=== PATIENT | female | born 1980 | race Caucasian/White ===

== ENCOUNTER 2017-08-28 11:13 | Observation (INO) | payer OTHER ==
[~2017-08-28] VITALS: Ht 170.2 cm; Wt 108.0 kg
[~2017-08-28 11:13] MED LIST: ADVIN25050 INH; ALBUAER2 INH; ALPR-411 PO; AMB10 PO; AMLO-114 PO; CLR10 PO; FLR1 PO; METO50TA16 PO; NSNN50; SERT-234 PO; savella PO
[2017-08-28 16:45] VITALS: BP 127/82; PULSE 75; TEMP 36.5; Ht 170.2 cm; Wt 108.0 kg
[2017-08-28] MEDS ORDERED: SUCR1TAB PO (17:59)
[2017-08-28] MEDS ORDERED: ONDANSETRON INJ 2 MG/ML 2 ML VIAL IV PRN (18:00)
[2017-08-28] MEDS ORDERED: DEXL60CA4 PO (18:01)
[2017-08-28] MEDS ORDERED: RANI150T3 PO (18:02)
[2017-08-28] MEDS ORDERED: POLYETHYLENE (MIRALAX) 17 GM PACK PO PRN (18:15)
[2017-08-28] MEDS ORDERED: FLUT1INH (18:20)
[2017-08-28] MEDS ORDERED: MOME220A (18:20)
[2017-08-28] MEDS ORDERED: MAGN400T6 PO (18:20)
[2017-08-28] MEDS ORDERED: DIAZ-165 PO (18:20)
[2017-08-28] MEDS ORDERED: CARB100C2 PO (18:20)
[2017-08-28] MEDS ORDERED: FRS/40 PO (18:20)
[2017-08-28] MEDS ORDERED: ASCOCRY2 (18:20)
[2017-08-28] MEDS ORDERED: PRAZ1CAP10 PO (18:20)
[2017-08-28] MEDS ORDERED: CARB1CAP3 PO (18:20)
[2017-08-28] MEDS ORDERED: ACETCAP13 (18:20)
[2017-08-28] MEDS ORDERED: OLAN1TAB64 PO (18:20)
[2017-08-28] MEDS ORDERED: TIZA4CAP PO (18:20)
[2017-08-28] MEDS ORDERED: MILN50TA PO (18:20)
[2017-08-28] MEDS ORDERED: FURO-85 PO (18:20)
[2017-08-28] MEDS ORDERED: FLUO40CA8 PO (18:20)
[2017-08-28] MEDS ORDERED: ALBINS/ INH (18:20)
[2017-08-28] MEDS: LACTATED RINGER'S 1000ML 1,000 ML IV SCH (18:38)
[2017-08-28] MEDS: HYDROmorphone INJ 0.5 MG/0.5 ML SYR IV PRN (18:38)
--- NOTE | 2017-08-28 18:38 | DIAGNOSTIC IMAGING REPORT ---
CHEST ONE VIEW PORTABLE HISTORY: 37 years-old Female copd acute shortness of breath COMPARISON: None available TECHNIQUE: Portable AP view of the chest FINDINGS: Cardiac silhouette is mildly enlarged. Mild pulmonary vascular congestion without overt edema. Left pectoral pacer is noted with leads overlying the right atrium and right ventricle. No pneumothorax, pleural effusion or focal airspace consolidation. Bones of the chest are grossly intact. IMPRESSION: Cardiomegaly with mild pulmonary vascular congestion The above report was generated using voice recognition software. It may contain grammatical, syntax or spelling errors. Electronically signed by: Magdi Moreira M.D. 08/28/2017 6:36 PM Dictated Date/Time: 08/28/2017 6:35 PM
[2017-08-28] MEDS ORDERED: IV FLUIDS COMPLETED PRN (19:00)
[2017-08-28 19:47] LABS: BUN/CREATININE RATIO 20.3 (10-20); CALCIUM 8.3 mg/dl (8.5-10.1); CREATININE 0.62 mg/dl (0.60-1.20); POTASSIUM 3.4 mmol/L (3.5-5.1)
[2017-08-28 19:48] LABS: BASO % 0.1 %; BASO ABS # 0.01 K/uL (0-0.2); COMPLETE YES; EOS % 1.2 %; HEMATOCRIT 36.4 % (37-47); IG% 0.6 %; LYMPH % 17.3 %; LYMPH ABS # 1.42 K/uL (1.2-3.4); MEAN CELL VOLUME 92.2 fL (80-100); MEAN CORPUSCULAR HEMOGLOBIN 29.9 pg (25-34); MEAN CORPUSCULAR HGB CONC 32.4 g/dl (32-36); MEAN PLATELET VOLUME 9.7 fL (7.4-10.4); MONO % 11.3 %; NEUT % 69.5 %; PLATELET COUNT 238 K/uL (130-400); RED BLOOD COUNT 3.95 M/uL (4.2-5.4); WHITE BLOOD COUNT 8.22 K/uL (4.8-10.8)
[2017-08-28 20:02] LABS: ALB/GLOB RATIO 0.9 (0.9-2)
--- NOTE | 2017-08-28 20:03 | History and Physical ---
History & Physical Date & Time of Service: Aug 28, 2017 at 19:49 Chief Complaint: Flank Pain Primary Care Physician: Matt Aponte M.D. History of Present Illness Source: patient, clinic records This is a 37yo F with a PMH of POTS (s/p pacemaker), COPD, fibromyalgia, bipolar disorder, vasospastic angina and anxiety who presents with R flank/back pain that started at 3am today. Describes pain as 10/10 stabbing R back pain with radiation to the flank. Associated with nausea but no vomiting or diarrhea. Patient took hydrocodone but it did not relieve pain so she presented to [facility]. Was found to have a leukocytosis of 12.6, an elevated lipase of 646 and transaminitis. Patient had a cholecystectomy in 2010. CT abd pelvis was without an acute inflammatory process. No nephrolithiasis, hydronephrosis, ureteral stone. Normal appendix. RUQ ultrasound showed a CBD of 0.5cm; no stone obstruction. GI was consulted at [facility] but patient unable to have an MRCP due to presence of pacemaker. Was transferred to [facility] for pain control and ERCP. Patient denies recent alcohol use. Denies prior history of pancreatitis. Does take Lasix daily for HTN. Denies h/o CHF. Past Medical/Surgical History Medical Problems: (1) Anxiety Status: Chronic (2) Bipolar disorder Status: Chronic (3) COPD (chronic obstructive pulmonary disease) Status: Chronic (4) Fibromyalgia Status: Chronic (5) GERD (gastroesophageal reflux disease) Status: Chronic (6) POTS (postural orthostatic tachycardia syndrome) Status: Chronic (7) Vasospastic angina Status: Chronic Surgical Problems: (1) S/P placement of cardiac pacemaker Status: Chronic Social History Smoking Status: Former Smoker (quit a year ago) Alcohol Use: occasionally (1x/month) Marital Status: Housing status: lives with family Immunizations History of Influenza Vaccine: N/A History of Tetanus Vaccine?: Yes History of Pneumococcal: Yes History of Hepatitis B Vaccine: Unknown Allergies Coded Allergies: CI Pigment Blue 63 (Verified Allergy, Unknown, "HALLUCINATIONS", 01/17/12) Duloxetine (Verified Allergy, Unknown, "HALLUCINATIONS", 01/17/12) Pregabalin (Verified Allergy, Unknown, TONGUE SWELLING, 01/17/12) Home Medications Scheduled Albuterol (Ventolin Hfa), 2 PUFFS INH Q4HR PRN Albuterol Sulf (Proventil 0.083% 2.5MG/3ML), 2.5 MG INH QID Amlodipine (Norvasc), 2.5 MG PO QAM Carbamazepine (Tegretol Xr), 200 MG PO BID Metoprolol Tartrate (Lopressor) (Lopressor), 50 MG PO BID Milnacipran Hcl (Savella), 1 TAB PO BID Olanzapine (Zyprexa), 15 MG PO DAILY Prazosin Hcl (Prazosin), 1 MG PO BID Ranitidine Hcl (Zantac), 150 MG PO BID Sucralfate (Sucralfate), 1 GM PO before meals Tizanidine (Zanaflex), 4 MG PO DAILY Scheduled PRN Dexlansoprazole (Dexilant), 60 MG PO Q am PRN for reflux Diazepam (Valium), 1 TAB PO TID PRN for Anxiety/Agitation Miscellaneous Medications Acetylcysteine (Nutrient) (Nac 600) Ascorbic Acid (Lina-C) Carbamazepine (Tegretol), 100 MG PO Fluoxetine (Prozac), 40 MG PO Fluticasone Furoate-Vilanterol (Breo Ellipta) Furosemide (Lasix), 40 MG PO Furosemide (Lasix), 20 MG PO Magnesium Oxide (Mag-Ox), 400 MG PO Mometasone Furoate (Inhalation (Asmanex Twisthaler 120 Me) Review of Systems Ten systems reviewed and negative except as noted in the HPI. Physical Exam Vital Signs Date Time Temp Pulse Resp B/P (MAP) Pulse Ox O2 Delivery O2 Flow Rate FiO2 08/28/17 16:45 36.5 75 16 127/82 Room Air General Appearance: + moderate distress, + obese Head: normocephalic, atraumatic Eyes: normal inspection, PERRL, sclerae normal ENT: normal ENT inspection, hearing grossly normal, pharynx normal (dry mucous membranes ) Neck: supple, thyroid normal, trachea midline Respiratory/Chest: chest non-tender, lungs clear, normal breath sounds, no respiratory distress, no accessory muscle use, + wheezing (Diffuse bilateral expiratory wheezing. Otherwise clear. ) Cardiovascular: regular rate, rhythm, no murmur, normal peripheral pulses Abdomen/GI: normal bowel sounds, non tender, soft, no organomegaly Back: + pertinent finding (TTP of R lower back to flank ) Extremities/Musculoskelatal: normal inspection, normal capillary refill, no pedal edema Neurologic/Psych: no motor/sensory deficits, alert, normal mood/affect, oriented x 3 Skin: normal color, + pertinent finding (Diffuse excoriations 2/2 skin picking ) Diagnostics Laboratory Results Results Past 24 Hours Test 08/28/17 19:11 Range/Units White Blood Count 8.22 4.8-10.8 K/uL Red Blood Count 3.95 4.2-5.4 M/uL Hemoglobin 11.8 12.0-16.0 g/dL Hematocrit 36.4 37-47 % Mean Corpuscular Volume 92.2 80-100 fL Mean Corpuscular Hemoglobin 29.9 25-34 pg Mean Corpuscular Hemoglobin Concent 32.4 32-36 g/dl Platelet Count 238 130-400 K/uL Mean Platelet Volume 9.7 7.4-10.4 fL Neutrophils (%) (Auto) 69.5 % Lymphocytes (%) (Auto) 17.3 % Monocytes (%) (Auto) 11.3 % Eosinophils (%) (Auto) 1.2 % Basophils (%) (Auto) 0.1 % Neutrophils # (Auto) 5.71 1.4-6.5 K/uL Lymphocytes # (Auto) 1.42 1.2-3.4 K/uL Monocytes # (Auto) 0.93 0.11-0.59 K/uL Eosinophils # (Auto) 0.10 0-0.5 K/uL Basophils # (Auto) 0.01 0-0.2 K/uL RDW Standard Deviation 44.7 36.4-46.3 fL RDW Coefficient of Variation 13.3 11.5-14.5 % Immature Granulocyte % (Auto) 0.6 % Immature Granulocyte # (Auto) 0.05 0.00-0.02 K/uL Sodium Level 135 136-145 mmol/L Potassium Level 3.4 3.5-5.1 mmol/L Chloride Level 102 98-107 mmol/L Carbon Dioxide Level 28 21-32 mmol/L Anion Gap 6.0 3-11 mmol/L Blood Urea Nitrogen 13 7-18 mg/dl Creatinine 0.62 0.60-1.20 mg/dl Est Creatinine Clear Calc Drug Dose 158.8 ml/min Estimated GFR () 134.5 Estimated GFR (Non- 116.0 BUN/Creatinine Ratio 20.3 10-20 Random Glucose 104 70-99 mg/dl Calcium Level 8.3 8.5-10.1 mg/dl Alanine Aminotransferase (ALT/SGPT) 324 12-78 U/L Albumin 3.3 3.4-5.0 gm/dl Lipase 114 73-393 U/L Diagnostic Radiology CXR: IMPRESSION: Cardiomegaly with mild pulmonary vascular congestion EKG Normal sinus rhythm Normal ECG When compared Normal EKG Impression Assessment and Plan This is a 37yo F with a PMH of POTS (s/p pacemaker), COPD, fibromyalgia, bipolar disorder, vasospastic angina and anxiety who presents with R flank/back pain that started at 3am today. Mild pancreatitis: -R flank, back pain -Lipase elevated to 646 at [facility] -AST of 221, ALT of 120 -Repeat labwork pending -CT abd pelvis unremarkable (imaging CD sent to radiology) -RUQ without evidence of CBD stone obstruction -Fluid resuscitation, pain control, clear liquid diet -NPO after midnight in case of ERCP tomorrow -GI consulted POTS: -S/p pacemaker -Stable -Continue metoprolol COPD: -Stable -Cont home inhalers Fibromyalgia: -Cont home dose zanaflex, flexeril, savella Vasospastic angina, HTN: -Stable -Hold lasix -Cont home amlodipine, prazosin, ntg prn Bipolar disorder: -Cont olanszapine, carbamazepine GERD, h/o gastritis: -Cont sucralfate, PPI, H2 carlos Anxiety: -Cont home dose prozac, valium DVT Ppx: SCDs Code status: FULL PCP: Doris Dispo: Observation medsurg. Plan to return home once medically stable Patient seen in collaboration with Dr. Valdovinos. Please see addendum. ADDENDUM: This is a 37 year old female with a PMH of POTS syndrome s/p pacemaker, fibromyalgia, depression/anxiety, PTSD, COPD, GERD, hx. of Iris Alonso tear presented to [facility] due to abdominal pain. Lab work showed elevated LFTs and lipase suggesting pancreatitis. CT of the abdomen was done, no acute findings. MRCP could not be performed due to her pacemaker in situ. She was sent here for possible ERCP. Plan: Acute Pancreatitis Lipase elevated at [facility] >600 Lipase is now down to wnl transaminitis noted possible common bile duct blockage? MRCP could not be performed secondary to pacemaker GI consulted for possible ERCP LR, NPO, pain control Will hold Lasix, but continue other medications for her vasospastic angina, fibromyalgia, depression/anxiety, etc. Level of Care Med/Surg Advanced Directives Existing Living Will: No Existing Power of Security Operations Engineer: No Resuscitation Status FULL RESUSCITATION VTE Prophylaxis VTE Risk Assessment Done? Y/N: Yes Risk Level: Low Given or contraindicated: SCD's
[2017-08-28] MEDS ORDERED: DIAZ5TAB3 PO (20:15)
[2017-08-28] MEDS ORDERED: PANTOprazole SOD 40 MG TAB PO PRN (20:30)
[2017-08-28] MEDS ORDERED: DIAZEPAM 5MG TAB PO PRN (20:30)
[2017-08-28] MEDS ORDERED: POTASSIUM CHLORIDE 20 MEQ TABCR PO STA (20:52)
[2017-08-28] MEDS: MOMETASONE FUROATE 14 PUFF/1 INHALER INH SCH (21:12)
[2017-08-28] MEDS: KETOROLAC TROMETHAMINE 30 MG/ML VIAL IV PRN (22:28)
[2017-08-29] VITALS: O2SAT 96
[2017-08-29] MEDS ORDERED: ALBUTEROL HFA 8 GM INHALER INH PRN
[2017-08-29 00:22] VITALS: BP 129/79; PULSE 88; TEMP 37; O2SAT 96
[2017-08-29] MEDS: LACTATED RINGER'S 1000ML 1,000 ML IV SCH ×4 (00:38→22:11)
[2017-08-29] MEDS: HYDROmorphone INJ 0.5 MG/0.5 ML SYR IV PRN ×3 (00:39→23:25)
[2017-08-29] MEDS: KETOROLAC TROMETHAMINE 30 MG/ML VIAL IV PRN ×3 (05:09→20:06)
[2017-08-29 06:47] LABS: HEMATOCRIT 34.3 % (37-47); MEAN CELL VOLUME 93.2 fL (80-100); MEAN CORPUSCULAR HEMOGLOBIN 29.6 pg (25-34); MEAN CORPUSCULAR HGB CONC 31.8 g/dl (32-36); PLATELET COUNT 217 K/uL (130-400); RED BLOOD COUNT 3.68 M/uL (4.2-5.4); WHITE BLOOD COUNT 6.83 K/uL (4.8-10.8)
[2017-08-29 07:13] LABS: BUN/CREATININE RATIO 19.1 (10-20); CALCIUM 8.1 mg/dl (8.5-10.1); CREATININE 0.57 mg/dl (0.60-1.20); MAGNESIUM 2.3 mg/dl (1.8-2.4); POTASSIUM 3.8 mmol/L (3.5-5.1)
[2017-08-29 07:17] VITALS: BP 144/89; PULSE 77; TEMP 36.7; O2SAT 94
[2017-08-29 07:33] LABS: ALB/GLOB RATIO 0.9 (0.9-2)
[2017-08-29 08:00] VITALS: O2SAT 94
[2017-08-29] MEDS ORDERED: CARBAMAZEPINE 200 MG TABCR PO SCH (08:00)
[2017-08-29] MEDS ORDERED: CARBAMAZEPINE 100 MG CHEW TAB PO SCH (08:00)
[2017-08-29] MEDS ORDERED: FLUOXETINE HCL 20 MG CAP PO SCH ×2 (08:00→21:00)
[2017-08-29] MEDS: MAGNESIUM OXIDE 400 MG TAB PO SCH (08:14)
[2017-08-29] MEDS: SUCRALFATE 1 GM TAB PO SCH ×4 (08:14→20:03)
[2017-08-29] MEDS: OLANZAPINE 5 MG TAB PO SCH (08:14)
[2017-08-29] MEDS: RANITIDINE HCL 150 MG TAB PO SCH ×2 (08:15→20:03)
[2017-08-29] MEDS: PRAZOSIN HCL 1 MG CAP PO SCH ×2 (08:15→20:03)
[2017-08-29] MEDS: METOPROLOL TARTRATE 50 MG TAB PO SCH ×2 (08:16→20:03)
[2017-08-29] MEDS: AMLODIPINE BESYLATE 5 MG TAB PO SCH (08:27)
--- NOTE | 2017-08-29 10:46 | Gastrointestinal Consultation ---
Gastrointestinal Consultation Date of Consultation: Aug 29, 2017 Attending Physician: Tonny Consulting Physician: Tim Reason for Consultation: mild pancreatitis History of Present Illness Patient is a 37 year old female w/ history of POTS, cholecystectomy for gallstones and others listed below who presented at [facility] as a transfer from [facility]. Pt was seen and evaluated, chart reviewed. Pt notes she has had intermittent right sided discomfort with mild nausea, no vomiting x 1 month. She recalls going to [place] [facility] 08/21/17 for similar symptoms. She notes at this time, imaging and labs were WNL and she was discharged to home. Her symptoms persisted intermittently w/ abd pain, nausea, rain colored stools and dark urine. Last evening had acute worsening in her symptoms, 06/25. Right sided flank pain w/ radiation to her RUQ pain. Sharp, stabbing. Associated with nausea, no vomiting. Not relieved with PO narcotics. She notes she continue to have light stools are dark urine. Has been taking 1000 mg tylenol 3-4 times daily intermittent for pain. No NSAIDs due to history of GERD. Per pt CT w/ evidence of pancreatis, RUQ US normal. No new medications. No history of pancreatitis. Is on Lasix. No ETOH use. Cant get MRCP due to pacer. She is afebrile, hypertensive, tachycardic. WBC WNL. TB 2, DB 1.5, AST 317, ALT 286, ALK 277. Lipase 142. EGD 04/30/17: gastritis, esophagitis samina RUQ US 08/28/17: CT ABD Pelvis 08/28/17: Past Medical/Surgical History abd pain, nausea, rain colored stools, dark urine, chills Past Medical History: COPD, vit d deficienct, IBS, GERD, Iris-Alonso tear, PTSD, depression, POTS Past Surgical History: pacemaker, cholecystectomy, hysterectomy, cystoscopy, EGD Social History Smoking Status: Former Smoker (quit a year ago) Alcohol Use: none Marital Status: Allergies Coded Allergies: CI Pigment Blue 63 (Verified Allergy, Unknown, "HALLUCINATIONS", 01/17/12) Duloxetine (Verified Allergy, Unknown, "HALLUCINATIONS", 01/17/12) Pregabalin (Verified Allergy, Unknown, TONGUE SWELLING, 01/17/12) Current Medications Home Meds and Scripts Medications Dose Route/Sig Max Daily Dose Days Date Category Dose Instructions Valium (Diazepam) 5 Mg Tab 1 Tab PO TID PRN 30 08/28/17 Reported Lina-C (Ascorbic Acid) 1 Cry Cry 08/28/17 Reported Nac 600 (Acetylcysteine (Nutrient)) 600 Mg Cap 08/28/17 Reported Mag-Ox (Magnesium Oxide) 400 Mg Tab 400 Mg PO 08/28/17 Reported Proventil 0.083% 2.5MG/3ML (Albuterol Sulf) 2.5 Mg/3 Ml Nebu 2.5 Mg INH QID 08/28/17 Reported Asmanex Twisthaler 120 Me (Mometasone Furoate (Inhalation) 220 Mcg/Inh Aer 08/28/17 Reported Breo Ellipta (Fluticasone Furoate-Vilanterol) 1 Inh Inh 08/28/17 Reported Lasix (Furosemide) 20 Mg Tab 20 Mg PO 08/28/17 Reported Take with 40mg lasix for a total of 60mg lasix total. Lasix (Furosemide) 40 Mg Tab 40 Mg PO 08/28/17 Reported Take with 20mg lasix for a total of 60mg lasix total. Prazosin (Prazosin HCl) 1 Mg Cap 1 Mg PO BID 08/28/17 Reported Tegretol (Carbamazepine) 100 Mg Chew 100 Mg PO 08/28/17 Reported Tegretol Xr (Carbamazepine) 200 Mg Cap 200 Mg PO BID 08/28/17 Reported Prozac (Fluoxetine HCl) 40 Mg Cap 40 Mg PO 08/28/17 Reported Zyprexa (Olanzapine) 15 Mg Tab 15 Mg PO DAILY 08/28/17 Reported Zanaflex (Tizanidine HCl) 4 Mg Cap 4 Mg PO DAILY 08/28/17 Reported Savella (Milnacipran Hcl) 50 Mg Tab 1 Tab PO BID 30 08/28/17 Reported Zantac (Ranitidine HCl) 150 Mg Tab 150 Mg PO BID 08/28/17 Reported Dexilant (Dexlansoprazole) 60 Mg Cap 60 Mg PO Q AM PRN 08/28/17 Reported Sucralfate 1 Gm Tab 1 Gm PO BEFORE MEALS 08/28/17 Reported Norvasc (Amlodipine Besylate) 10 Mg Tab 2.5 Mg PO QAM 01/18/12 Rx Ventolin Hfa (Albuterol) Aers 2 Puffs INH Q4HR PRN 07/10/11 Reported for wheezing Lopressor (Metoprolol Tartrate) 50 Mg Tab 50 Mg PO BID 07/10/11 Reported Review of Systems Constitutional: + chills, No fever Respiratory: No cough, No shortness of breath Cardiac: No chest pain, No edema Abdomen: + pain, + nausea, No vomiting, No diarrhea, No constipation, No GI bleeding, No dysphagia Physical Exam Date Time Temp Pulse Resp B/P (MAP) Pulse Ox O2 Delivery O2 Flow Rate FiO2 08/29/17 07:17 36.7 77 20 144/89 (107) 94 Room Air 08/29/17 00:22 37.0 88 20 129/79 (96) 96 Room Air 08/29/17 00:00 96 Room Air 08/28/17 18:00 Room Air 08/28/17 16:45 36.5 75 16 127/82 Room Air General Appearance: + mild distress (pt is holding RUQ in bed) Eyes: PERRL ENT: hearing grossly normal Neck: supple Respiratory/Chest: lungs clear, normal breath sounds Cardiovascular: regular rate, rhythm Abdomen: normal bowel sounds, soft, no organomegaly, no pulsatile mass, + tenderness (RUQ pain w/ radiation to right flank ) Neurologic/Psych: alert, normal mood/affect, oriented x 3 Skin: normal color, no jaundice, warm/dry Laboratory Results Last 24 Hours Test 08/28/17 19:11 08/29/17 03:29 08/29/17 05:49 08/29/17 09:34 White Blood Count 8.22 K/uL 6.83 K/uL Red Blood Count 3.95 M/uL 3.68 M/uL Hemoglobin 11.8 g/dL 10.9 g/dL Hematocrit 36.4 % 34.3 % Mean Corpuscular Volume 92.2 fL 93.2 fL Mean Corpuscular Hemoglobin 29.9 pg 29.6 pg Mean Corpuscular Hemoglobin Concent 32.4 g/dl 31.8 g/dl Platelet Count 238 K/uL 217 K/uL Mean Platelet Volume 9.7 fL 10.0 fL Neutrophils (%) (Auto) 69.5 % Lymphocytes (%) (Auto) 17.3 % Monocytes (%) (Auto) 11.3 % Eosinophils (%) (Auto) 1.2 % Basophils (%) (Auto) 0.1 % Neutrophils # (Auto) 5.71 K/uL Lymphocytes # (Auto) 1.42 K/uL Monocytes # (Auto) 0.93 K/uL Eosinophils # (Auto) 0.10 K/uL Basophils # (Auto) 0.01 K/uL RDW Standard Deviation 44.7 fL 45.7 fL RDW Coefficient of Variation 13.3 % 13.4 % Immature Granulocyte % (Auto) 0.6 % Immature Granulocyte # (Auto) 0.05 K/uL Prothrombin Time 10.0 SECONDS Prothromb Time International Ratio 1.0 Activated Partial Thromboplast Time 25.7 SECONDS Partial Thromboplastin Ratio 1.0 Sodium Level 135 mmol/L 136 mmol/L Potassium Level 3.4 mmol/L 3.8 mmol/L Chloride Level 102 mmol/L 103 mmol/L Carbon Dioxide Level 28 mmol/L 28 mmol/L Anion Gap 6.0 mmol/L 4.0 mmol/L Blood Urea Nitrogen 13 mg/dl 11 mg/dl Creatinine 0.62 mg/dl 0.57 mg/dl Est Creatinine Clear Calc Drug Dose 158.8 ml/min 172.7 ml/min Estimated GFR () 134.5 138.2 Estimated GFR (Non- 116.0 119.3 BUN/Creatinine Ratio 20.3 19.1 Random Glucose 104 mg/dl 108 mg/dl Calcium Level 8.3 mg/dl 8.1 mg/dl Total Bilirubin 1.2 mg/dl 2.0 mg/dl Aspartate Amino Transf (AST/SGOT) 411 U/L 317 U/L Alanine Aminotransferase (ALT/SGPT) 324 U/L 286 U/L Alkaline Phosphatase 286 U/L 277 U/L Total Protein 7.0 gm/dl 6.0 gm/dl Albumin 3.3 gm/dl 2.8 gm/dl Globulin 3.7 gm/dl 3.2 gm/dl Albumin/Globulin Ratio 0.9 0.9 Lipase 114 U/L 142 U/L Acetaminophen Level < 2 ug/ml Magnesium Level 2.3 mg/dl Direct Bilirubin 1.5 mg/dl Ethyl Alcohol mg/dL < 3.0 mg/dl Impression Patient is a 37 year old female admitted with severe RUQ pain, I was unable to review imaging yet, per report CT suggestive of mild pancreatitis, RUQ US without evidence of obstructive. Lipase WNL. TB 2, TB 1.5, AST 317, ALT 216, ALK 277. Will obtain serology, rule out Tylenol toxicity and other causes of cholestasis w/ plan for EUS/ERCP Plan Tylenol level ETOH level CMV EBV Acute hep panel Daily CBC, CMP Review imaging when available NPO IVF for hydration Antiemetics PRN Analgesia PRN EUS/ERCP, timing to be determined GI will follow, please call with any questions or concerns I have seen and examined the patient with OLIMPIA Bullard whose note reflects our findings and plan. RUQ and back pain as well as about a week of epigastric pain. Will repeat US here as the bilirubin increased. May need EUS/ +/- ERCP tomorrow.
--- NOTE | 2017-08-29 11:21 | Progress Note ---
Progress Note Date of Service Aug 29, 2017. Progress Note Subjective: Patient seen and examined this AM, drowsy at the bedside due to pain medications , patient cooperative on exam Physical Exam General Appearance: no acute distress Head: normocephalic, atraumatic Eyes: normal inspectionl Neck: supple, trachea midline Respiratory/Chest: chest non-tender, lungs clear, normal breath sounds, no respiratory distress, no accessory muscle use Cardiovascular: regular rate, rhythm, no murmur Abdomen/GI: normal bowel sounds, non tender, soft, no organomegaly Back: TTP of R lower back to flank Extremities/Musculoskelatal: normal inspection Plan This is a 37yo F with a PMH of POTS (s/p pacemaker), COPD, fibromyalgia, bipolar disorder, vasospastic angina and anxiety, had a cholecystectomy in 2010 , who presents with Right flank/back pain with labs for leukocytosis of 12.6, an elevated lipase of 646 and transaminitis Outside imaging from [facility] sent to radiology -CT abd pelvis unremarkable (imaging CD sent to radiology) -RUQ without evidence of CBD stone obstruction As per GI possible EUS/ERCP, keep NPO except medications, continue IVF for hydration / Antiemetics PRN / Analgesia PRN (monitor for sedation) Acetaminophen level negative Ethyl alcohol level negative pending CMV and EBV Hep C negative Hep B antigen neg pending Hep B and Hep A IgM Postural orthostatic tachycardia syndrome -has pacemaker -Continue metoprolol COPD: [place] [facility] CXR: Cardiac silhouette is mildly enlarged. Mild pulmonary vascular congestion without overt edema. Left pectoral pacer is noted with leads overlying the right atrium and right ventricle. No pneumothorax, pleural effusion or focal airspace consolidation. Bones of the chest are grossly intact -Stable -Cont home inhalers Fibromyalgia: -Cont home dose zanaflex, flexeril, savella Vasospastic angina, HTN: -Stable -Hold lasix -Cont home amlodipine, prazosin, ntg prn Bipolar disorder: -Cont olanszapine, carbamazepine GERD, h/o gastritis: -Cont sucralfate, PPI, H2 carlos Anxiety: - prozac, valium DVT Ppx: SCDs
[2017-08-29] MEDS ORDERED: INDOMETHACIN 50 MG SUPP PR SCH (11:30)
[2017-08-29] MEDS ORDERED: NURSING VERBAL MED ORDER ONE (13:30)
--- NOTE | 2017-08-29 13:52 | DIAGNOSTIC IMAGING REPORT ---
GALLBLADDER-ABD LIMITED HISTORY: 37 years-old Female elevated LFTs, RUQ pain acute right upper quadrant abdominal pain COMPARISON: CT 08/28/2017 TECHNIQUE: Multiple real-time sonographic images of the abdominal right upper quadrant were obtained assessing grayscale appearance and color flow FINDINGS: The imaged pancreas is unremarkable with the majority obscured by bowel gas. Mildly heterogeneous appearance of the liver is slightly echogenic suggesting fatty infiltration. No intrahepatic biliary ductal dilation. Liver measures up to 18.2 cm. Common bile duct is normal, 4 mm. Surgically absent gallbladder. Probable small right pleural effusion incidentally noted. The imaged right kidney is within normal limits measuring up to 10.8 cm in length. No right-sided hydronephrosis. IMPRESSION: 1. Prior cholecystectomy. 2. No biliary ductal dilation. 3. Mild fatty infiltration of the liver. The above report was generated using voice recognition software. It may contain grammatical, syntax or spelling errors. Electronically signed by: Magdi Moreira M.D. 08/29/2017 1:50 PM Dictated Date/Time: 08/29/2017 1:46 PM
[2017-08-29 15:32] VITALS: BP 126/78; PULSE 86; TEMP 37.5; O2SAT 98
[2017-08-29 20:04] VITALS: BP 156/85; PULSE 98
[2017-08-29] MEDS: MOMETASONE FUROATE 14 PUFF/1 INHALER INH SCH (20:53)
--- NOTE | 2017-08-29 21:23 | Anesthesiology Progress Note ---
Anesthesia Progress Note Date of Service Aug 29, 2017. Progress Notes The patient is a 37 y/o female scheduled for an ERCP tomorrow. She has R flank pain and a history of cholecystectomy. Other PMH includes COPD, vasospastic angina, HTN, vasovagal syncope, pacemaker placed due to POTS, GERD, fibromyalgia , hypothyroidism, anemia, anxiety, bipolar disorder, and obesity. The patient is an ASA 3. A full anesthesia H and P was completed. She was consented for general anesthesia. She was counseled to remain NPO after midnight except for sips of water with pills.
[2017-08-30] VITALS (7 sets, daily range): BP systolic 108–138; BP diastolic 66–88; PULSE 62–96; TEMP 36.6–37.3; O2SAT 92–98
[2017-08-30] MEDS: LACTATED RINGER'S 1000ML 1,000 ML IV SCH (05:37)
[2017-08-30] MEDS: HYDROmorphone INJ 0.5 MG/0.5 ML SYR IV PRN ×4 (05:38→17:58)
[2017-08-30 07:05] LABS: BASO % 0.3 %; BASO ABS # 0.02 K/uL (0-0.2); COMPLETE YES; HEMATOCRIT 31.8 % (37-47); IG% 0.6 %; LYMPH % 29.6 %; LYMPH ABS # 1.89 K/uL (1.2-3.4); MEAN CELL VOLUME 94.1 fL (80-100); MEAN CORPUSCULAR HEMOGLOBIN 29.6 pg (25-34); MEAN CORPUSCULAR HGB CONC 31.4 g/dl (32-36); MEAN PLATELET VOLUME 9.9 fL (7.4-10.4); MONO % 10.3 %; NEUT % 57.2 %; PLATELET COUNT 197 K/uL (130-400); RED BLOOD COUNT 3.38 M/uL (4.2-5.4); WHITE BLOOD COUNT 6.38 K/uL (4.8-10.8)
[2017-08-30 07:40] LABS: BUN/CREATININE RATIO 14.3 (10-20); CALCIUM 8.1 mg/dl (8.5-10.1); CREATININE 0.52 mg/dl (0.60-1.20); POTASSIUM 4.1 mmol/L (3.5-5.1)
[2017-08-30 07:50] LABS: ALB/GLOB RATIO 0.9 (0.9-2)
[2017-08-30] MEDS: AMLODIPINE BESYLATE 5 MG TAB PO SCH (08:01)
[2017-08-30] MEDS: PRAZOSIN HCL 1 MG CAP PO SCH (08:01)
[2017-08-30] MEDS: OLANZAPINE 5 MG TAB PO SCH (08:01)
[2017-08-30] MEDS: MAGNESIUM OXIDE 400 MG TAB PO SCH (08:01)
[2017-08-30] MEDS: RANITIDINE HCL 150 MG TAB PO SCH (08:01)
[2017-08-30] MEDS: METOPROLOL TARTRATE 50 MG TAB PO SCH (08:02)
[2017-08-30] MEDS: SUCRALFATE 1 GM TAB PO SCH ×3 (08:02→16:53)
--- NOTE | 2017-08-30 10:29 | Progress Note ---
Progress Note Date of Service Aug 30, 2017. Progress Note Pt was seen and evaluated, chart reviewed. No acute events overnight. Is NPO for EUS/ERCP today. She notes continued RUQ and right flank pain w/ nausea. Labs improved overnight w/ normal bilirubin and improving transaminases. Tylenol level WNL. ETOH level WNL. Acute hep panel pending, but negative to date. VSS. No leukocytosis. No acute distress, lungs CTA, heart RR, abdomen soft , non-distending w/ RUQ discomfort. 37 year old female w/ right sided abdominal and flank pain w/ elevated LFTs (now resolving) w/ normal RUQ US. Presentation was concerning for CBD stone, with improvement of LFTs, perhaps she passed the stone. Given persistence of her discomfort, I would recommend we keep the PT NPO with plan for EUS - if EUS is abnormal, will arrange ERCP.
[2017-08-30] MEDS ORDERED: INDOMETHACIN 50 MG SUPP PR SCH (11:30)
[2017-08-30] MEDS ORDERED: PROPOFOL IV EMULSION 10 MG/ML 20 ML VIAL IV ONE ×2 (12:43→14:28)
[2017-08-30] MEDS ORDERED: MIDAZOLAM HCL 1 MG/ML 2ML VIAL ONE (12:44)
[2017-08-30] MEDS ORDERED: FENTANYL CITRATE INJ 50 MCG/1 ML 2 ML VIAL ONE ×2 (12:44→14:36)
[2017-08-30] MEDS ORDERED: DEXAMETHASONE SOD INJ 4 MG/ML VIAL ONE (12:45)
[2017-08-30] MEDS ORDERED: ONDANSETRON INJ 2 MG/ML 2 ML VIAL ONE (12:45)
--- NOTE | 2017-08-30 13:29 | Progress Note ---
Progress Note Date of Service Aug 30, 2017. Progress Note Subjective: Patient reports less abdomen dn flank pain today. No chest pain or shortness of breath Physical Exam General Appearance: no acute distress Head: normocephalic, atraumatic Eyes: normal inspection Neck: supple, trachea midline Respiratory/Chest: chest non-tender, lungs clear, normal breath sounds, no respiratory distress, no accessory muscle use Cardiovascular: regular rate, rhythm, no murmur Abdomen/GI: normal bowel sounds, non tender, soft, no organomegaly Back: TTP of R lower back to flank Extremities/Musculoskelatal: normal inspection Plan This is a 37yo F with a PMH of POTS (s/p pacemaker), COPD, fibromyalgia, bipolar disorder, vasospastic angina and anxiety, had a cholecystectomy in 2010 , who presents with Right flank/back pain with labs for leukocytosis of 12.6, an elevated lipase of 646 and transaminitis Outside imaging from [facility] sent to radiology -CT abd pelvis unremarkable (imaging CD sent to radiology) -RUQ without evidence of CBD stone obstruction As per GI possible EUS vs ERCP, keep NPO except medications, continue IVF for hydration / Antiemetics PRN / Analgesia PRN (monitor for sedation) Acetaminophen level negative Ethyl alcohol level negative pending CMV and EBV Hep C negative Hep B antigen neg pending Hep B and Hep A IgM AST/ ALT are downtrending Postural orthostatic tachycardia syndrome -has pacemaker -Continue metoprolol COPD: [facility] Imaging CXR: Cardiac silhouette is mildly enlarged. Mild pulmonary vascular congestion without overt edema. Left pectoral pacer is noted with leads overlying the right atrium and right ventricle. No pneumothorax, pleural effusion or focal airspace consolidation. Bones of the chest are grossly intact -Stable -Cont home inhalers Fibromyalgia: -Cont home dose zanaflex, flexeril, savella Vasospastic angina, HTN: -Stable -Hold lasix -Cont home amlodipine, prazosin, ntg prn Bipolar disorder: -Cont olanszapine, carbamazepine GERD, h/o gastritis: -Cont sucralfate, PPI, H2 carlos Anxiety: - prozac, valium DVT Ppx: SCDs
--- NOTE | 2017-08-30 14:04 | Endo History and Physical ---
History & Physical Date of Service: Aug 30, 2017. Chief Complaint: Abdominal pain Referring Physician: Dr. Dumont History of Present Illness Patient referred for EUS and possible ERCP after presenting with RUQ pain and elevated liver tests. [facility] EGD 3 to 4 months ago in [place] by Dr. Urban. Past Surgical History Hx Cardiac Surgery: Yes (pacemaker) Hx Abdominal Surgery: Yes (gallbladder remover (2010)) Hx Post-Op Nausea and Vomiting: No Hx Cancer Surgery: No Hx Thoracic Surgery: No Hx Orthopedic: No Hx Urinary Tract Surgery: No Social History Smoking Status: Former Smoker (quit a year ago) Hx Substance Use: Yes (marijauna oil (for fibromyalgia and anxiety) Adderall ) Hx Alcohol Use: Yes (occasionally) Allergies Coded Allergies: CI Pigment Blue 63 (Verified Allergy, Unknown, "HALLUCINATIONS", 01/17/12) Duloxetine (Verified Allergy, Unknown, "HALLUCINATIONS", 01/17/12) Pregabalin (Verified Allergy, Unknown, TONGUE SWELLING, 01/17/12) Current Medications Reported Home Medications Medications Dose Route/Sig Max Daily Dose Days Date Category Dose Instructions Valium (Diazepam) 5 Mg Tab 1 Tab PO TID PRN 30 08/28/17 Reported Lina-C (Ascorbic Acid) 1 Cry Cry 08/28/17 Reported Nac 600 (Acetylcysteine (Nutrient)) 600 Mg Cap 08/28/17 Reported Mag-Ox (Magnesium Oxide) 400 Mg Tab 400 Mg PO 08/28/17 Reported Proventil 0.083% 2.5MG/3ML (Albuterol Sulf) 2.5 Mg/3 Ml Nebu 2.5 Mg INH QID 08/28/17 Reported Asmanex Twisthaler 120 Me (Mometasone Furoate (Inhalation) 220 Mcg/Inh Aer 08/28/17 Reported Breo Ellipta (Fluticasone Furoate-Vilanterol) 1 Inh Inh 08/28/17 Reported Lasix (Furosemide) 20 Mg Tab 20 Mg PO 08/28/17 Reported Take with 40mg lasix for a total of 60mg lasix total. Lasix (Furosemide) 40 Mg Tab 40 Mg PO 08/28/17 Reported Take with 20mg lasix for a total of 60mg lasix total. Prazosin (Prazosin HCl) 1 Mg Cap 1 Mg PO BID 08/28/17 Reported Tegretol (Carbamazepine) 100 Mg Chew 100 Mg PO 08/28/17 Reported Tegretol Xr (Carbamazepine) 200 Mg Cap 200 Mg PO BID 08/28/17 Reported Prozac (Fluoxetine HCl) 40 Mg Cap 40 Mg PO 08/28/17 Reported Zyprexa (Olanzapine) 15 Mg Tab 15 Mg PO DAILY 08/28/17 Reported Zanaflex (Tizanidine HCl) 4 Mg Cap 4 Mg PO DAILY 08/28/17 Reported Savella (Milnacipran Hcl) 50 Mg Tab 1 Tab PO BID 30 08/28/17 Reported Zantac (Ranitidine HCl) 150 Mg Tab 150 Mg PO BID 08/28/17 Reported Dexilant (Dexlansoprazole) 60 Mg Cap 60 Mg PO Q AM PRN 08/28/17 Reported Sucralfate 1 Gm Tab 1 Gm PO BEFORE MEALS 08/28/17 Reported Norvasc (Amlodipine Besylate) 10 Mg Tab 2.5 Mg PO QAM 01/18/12 Rx Ventolin Hfa (Albuterol) Aers 2 Puffs INH Q4HR PRN 07/10/11 Reported for wheezing Lopressor (Metoprolol Tartrate) 50 Mg Tab 50 Mg PO BID 07/10/11 Reported Vital Signs Weight (Kilograms): 108.000 Height (Feet): 5 Height (Inches): 7.00 Date Time Temp Pulse Resp B/P (MAP) Pulse Ox O2 Delivery O2 Flow Rate FiO2 08/30/17 08:00 Room Air 08/30/17 07:47 36.6 76 18 117/75 (89) 92 08/30/17 00:40 Room Air 08/30/17 00:00 36.7 96 20 108/66 (80) 94 Room Air 08/29/17 20:04 98 156/85 (108) 08/29/17 16:00 Room Air 08/29/17 15:32 37.5 86 18 126/78 (94) 98 Room Air Physical Exam General Appearance: no apparent distress Respiratory/Chest: Auscultation: deminished air movement Cardiovascular: Heart Auscultation: RRR Abdomen: Inspection & Palpation: soft, RUQ tenderness Assessment and Plan Evaluation for CBD stones today with EUS. If positive we will proceed with ERCP. We have discussed the risks to include bleeding, infection, perforation, pain, failed cannulation and pancreatitis.
--- NOTE | 2017-08-30 14:36 | GI REPORT ---
Procedure Date: 08/30/2017 2:10 PM Procedure: Upper EUS Indications: Suspected choledocholithiasis, Abdominal pain in the right upper quadrant Medicines: General Anesthesia Complications: No immediate complications. Estimated blood loss: Minimal. Estimated Blood Loss: Estimated blood loss was minimal. Procedure: Pre-Anesthesia Assessment: - Prior to the procedure, a History and Physical was performed, and patient medications, allergies and sensitivities were reviewed. The patient's tolerance of previous anesthesia was reviewed. - The risks and benefits of the procedure and the sedation options and risks were discussed with the patient. All questions were answered and informed consent was obtained. - Patient identification and proposed procedure were verified prior to the procedure by the physician, the nurse and the race board attendant. The procedure was verified in the procedure room. - Pre-procedure physical examination revealed no contraindications to sedation. - ASA Grade Assessment: III - A patient with severe systemic disease. - After reviewing the risks and benefits, the patient was deemed in satisfactory condition to undergo the procedure. - The anesthesia plan was to use general anesthesia. - Immediately prior to administration of medications, the patient was re-assessed for adequacy to receive sedatives. - The heart rate, respiratory rate, oxygen saturations, blood pressure, adequacy of pulmonary ventilation, and response to care were monitored throughout the procedure. - The physical status of the patient was re-assessed after the procedure. After obtaining informed consent, the endoscope was passed under direct vision. Throughout the procedure, the patient's blood pressure, pulse, and oxygen saturations were monitored continuously. The Scope was introduced through the mouth, and advanced to the second part of duodenum. The upper EUS was accomplished without difficulty. The patient tolerated the procedure well. Findings: Endosonographic Finding : There was no sign of significant endosonographic abnormality in the ampulla. No masses were identified. There was no sign of significant endosonographic abnormality in the common bile duct. No stones and no biliary sludge were identified. The CBD was 4 mm. One hyperechoic clip or stone was visualized endosonographically in the cystic duct. The stone measured 2 mm in greatest dimension. It was hyperechoic. There was abnormal echogenicity in the entire examined liver. This area was hyperechoic. There was no sign of significant endosonographic abnormality in the entire pancreas. No masses, no cysts, the pancreatic duct was thin in caliber. The PD was 2.2 mm in the head and 1.3 mm in the body. No lymph nodes were seen during endosonographic examination in the celiac region (level 20), in the perigastric region and in the peripancreatic region. One benign-appearing lymph node was visualized in the yonis hepatis region. It measured 13 mm by 10 mm in maximal cross-sectional diameter. The node was triangular, hypoechoic and had well defined margins. There was no sign of significant endosonographic abnormality in the left adrenal gland. No adrenal gland enlargement was identified. Impression: - Normal ampulla. - 4 mm common bile duct. - One clip or stone was visualized endosonographically in the cystic duct (not reachable with ERCP). - Fatty infiltration of the liver. - Normal pancreas. - One benign lymph node was visualized in the yonis hepatis region. - Normal left adrenal Recommendation: - Return patient to hospital [facility] for ongoing care. - Advance diet as tolerated today. - Observe patient's clinical course. Patient's presentation most compatible with passed gallstone. Would suggest conservative management for the present and a follow-up with her regular GI provider if symptoms return. Devonte Mckeon D.O. Devonte Mckeon, 08/30/2017 2:35:26 PM This report has been signed electronically. Note Initiated On: 08/30/2017 2:10 PM I attest to the content of the Intraoperative Record and orders documented therein, exceptions below
--- NOTE | 2017-08-30 14:38 | [facility] Post Operative Brief Note ---
Immediate Operative Summary Operative Date Aug 30, 2017. Pre-Operative Diagnosis Suspected gallstones Post-Operative Diagnosis Normal bile duct Fatty liver 13 mm Jhonatan hepatitis lymph node Procedure(s) Performed Upper Endoscopic Ultrasonography Surgeon Dr. Devonte Mckeon Or Scrub Tech Surgeon(s) None Estimated Blood Loss 0 mL Findings 4 mm common bile duct No retained stones seen in the CBD today Specimens Pathology specimens to be labeled and handled by endoscopy staff Drains None Anesthesia General Complication(s) None Disposition Recovery Room / PACU
--- NOTE | 2017-08-30 14:41 | Progress Note ---
Progress Note Date of Service Aug 30, 2017. Progress Note EUS performed this afternoon. Findings: CBD 4 mm (no stones seen) Clip or 2 mm stone seen in the cystic duct remanent (no reachable with ERCP) Fatty liver Normal pancreas 13 mm yonis hepatitis lymph node (benign appearing) Impression: presentatioin most compatible with passed gallstones given improved pain and liver enzymes. 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 I would suggest watchful waiting for the present/conservative therapy. Recomendations: advance diet as tolerated clinical f/u with regular gi provider in [place] if symptoms return call with questions.
[2017-08-30] MEDS ORDERED: FLUMAZENIL 0.1 MG/1 ML 10 ML VIAL IV PRN (14:45)
[2017-08-30] MEDS ORDERED: ATROPINE SULFATE 0.1 MG/ML 5ML SYR IV PRN (14:45)
[2017-08-30] MEDS ORDERED: NALOXONE HCL 0.4 MG/1 ML VIAL/CARP IV PRN (14:45)
[2017-08-30] MEDS ORDERED: PROMETHAZINE HCL INJ 12.5 MG in SODIUM CHLORIDE 0.9% 50ML 50 ML IV PRN (14:45)
[2017-08-30] MEDS ORDERED: EpHEDrine SULFATE INJ 50 MG/ML AMP IV PRN (14:45)
[2017-08-30] MEDS ORDERED: ONDANSETRON INJ 2 MG/ML 2 ML VIAL IV PRN (14:45)
--- NOTE | 2017-08-30 15:19 | Anesthesiology Progress Note ---
Anesthesia Post Op Note Date & Time Aug 30, 2017 at 15:19 Vital Signs Pain Intensity: 0 Vital Signs Past 12 Hours Date Time Temp Pulse Resp B/P (MAP) Pulse Ox O2 Delivery O2 Flow Rate FiO2 08/30/17 15:09 36.8 08/30/17 15:06 90 16 08/30/17 15:06 90 16 125/69 99 08/30/17 15:01 81 24 08/30/17 15:01 81 24 113/75 98 08/30/17 15:00 Room Air 08/30/17 14:56 62 17 08/30/17 14:56 61 17 119/63 98 08/30/17 14:51 90 11 123/73 98 08/30/17 14:51 89 11 08/30/17 14:49 114/67 08/30/17 14:36 36.6 72 16 129/58 99 Oxymask 7 08/30/17 08:00 Room Air 08/30/17 07:47 36.6 76 18 117/75 (89) 92 Notes Mental Status: alert / awake / arousable, participated in evaluation Pt Amnestic to Procedure: Yes Nausea / Vomiting: adequately controlled Pain: adequately controlled Airway Patency, RR, SpO2: stable & adequate BP & HR: stable & adequate Hydration State: stable & adequate Anesthetic Complications: no major complications apparent
[2017-08-30] MEDS ORDERED: FLUO40CA8 PO (15:30)
[2017-08-30] MEDS ORDERED: CARB1CAP3 PO (15:52)
[2017-08-30] MEDS ORDERED: CARB100C2 PO (15:52)
[2017-08-30] MEDS ORDERED: IBUP-1459 PO (15:59)
--- NOTE | 2017-08-30 16:00 | Discharge Instructions ---
Discharge Instructions Date of Service Aug 30, 2017. Admission Reason for Admission: Flank Pain Discharge Discharge Diagnosis / Problem: Pain of Right upper quadrant/ Right flank, transaminitis, passed gallstone Discharge Goals Goal(s): Decrease discomfort, Improve function Activity Recommendations Activity Limitations: per Instructions/Follow-up section Shower/Bathe: no limitations . Instructions / Follow-Up Instructions / Follow-Up Hospital Course 08/29/17 Abdominal Ultrasound The imaged pancreas is unremarkable with the majority obscured by bowel gas. Mildly heterogeneous appearance of the liver is slightly echogenic suggesting fatty infiltration. No intrahepatic biliary ductal dilation. Liver measures up to 18.2 cm. Common bile duct is normal, 4 mm. Surgically absent gallbladder. Probable small right pleural effusion incidentally noted. The imaged right kidney is within normal limits measuring up to 10.8 cm in length. No right-sided hydronephrosis. IMPRESSION: 1. Prior cholecystectomy. 2. No biliary ductal dilation. 3. Mild fatty infiltration of the liver. 08/30/17 EUS "Endosonographic Finding : There was no sign of significant endosonographic abnormality in the ampulla. No masses were identified. There was no sign of significant endosonographic abnormality in the common bile duct. No stones and no biliary sludge were identified. The CBD was 4 mm. One hyperechoic clip or stone was visualized endosonographically in the cystic duct. The stone measured 2 mm in greatest dimension. It was hyperechoic. There was abnormal echogenicity in the entire examined liver. This area was hyperechoic. There was no sign of significant endosonographic abnormality in the entire pancreas. No masses, no cysts, the pancreatic duct was thin in caliber. The PD was 2.2 mm in the head and 1.3 mm in the body. No lymph nodes were seen during endosonographic examination in the celiac region (level 20), in the perigastric region and in the peripancreatic region. One benign-appearing lymph node was visualized in the yonis hepatis region. It measured 13 mm by 10 mm in maximal cross- sectional diameter. The node was triangular, hypoechoic and had well defined margins. There was no sign of significant endosonographic abnormality in the left adrenal gland. No adrenal gland enlargement was identified. Impression: - Normal ampulla. - 4 mm common bile duct. - One clip or stone was visualized endosonographically in the cystic duct (not reachable with ERCP). - Fatty infiltration of the liver. - Normal pancreas. - One benign lymph node was visualized in the yonis hepatis region. - Normal left adrenal" Gastroenterology 08/30/17: Patient's presentation most compatible with passed gallstone. 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 09/03/2017 9:30 AM Javon De Leon MD Thoracic Med [facility] 09/04/2017 8:30 PM Sleep Study [facility], [facility] 09/06/2017 10:30 AM Randi Tong PA-C Otolaryngology [facility] 09/26/2017 11:00 AM Pacer Clinic [facility], [facility] Patient asked to return to the Emergency room if experiences severe abdominal or flank pain, high fevers, frequent diarrhea, vomiting, loss of consciousness Patient advised to limit fatty meals and foods with high amounts of simple sugars and cut down alcohol use to prevent further fatty infiltration of the liver. Encourage to stop tobacco products. Encourage to exercise as tolerated Current Hospital Diet Patient's current hospital diet: AHA Diet (Heart Healthy) Discharge Diet Recommended Diet: AHA Diet (Heart Healthy) Procedures Procedures Performed: Upper Endoscopic Ultrasonography Pending Studies Studies pending at discharge: no Laboratory Results 08/30/17 06:23 Red Blood Count 3.38, Mean Corpuscular Volume 94.1, Mean Corpuscular Hemoglobin 29.6, Mean Corpuscular Hemoglobin Concent 31.4, Mean Platelet Volume 9.9, Neutrophils (%) (Auto) 57.2, Lymphocytes (%) (Auto) 29.6, Monocytes (%) (Auto) 10.3, Eosinophils (%) (Auto) 2.0, Basophils (%) (Auto) 0.3, Neutrophils # (Auto ) 3.64, Lymphocytes # (Auto) 1.89, Monocytes # (Auto) 0.66, Eosinophils # (Auto ) 0.13, Basophils # (Auto) 0.02 08/30/17 06:23 Test 08/28/17 19:11 08/29/17 03:29 08/29/17 05:49 08/29/17 09:34 Prothrombin Time 10.0 SECONDS (9.0-12.0) Prothromb Time International Ratio 1.0 (0.9-1.1) Activated Partial Thromboplast Time 25.7 SECONDS (21.0-31.0) Partial Thromboplastin Ratio 1.0 Acetaminophen Level < 2 ug/ml (10-30) Magnesium Level 2.3 mg/dl (1.8-2.4) Direct Bilirubin 1.5 mg/dl (0-0.2) Lipase 142 U/L (73-393) Ethyl Alcohol mg/dL < 3.0 mg/dl (0-3) Hepatitis B Surface Antigen NEG (NEG) Hepatitis C Antibody NEG (NEG) Test 08/30/17 06:23 White Blood Count 6.38 K/uL (4.8-10.8) Red Blood Count 3.38 M/uL (4.2-5.4) Hemoglobin 10.0 g/dL (12.0-16.0) Hematocrit 31.8 % (37-47) Mean Corpuscular Volume 94.1 fL (80-100) Mean Corpuscular Hemoglobin 29.6 pg (25-34) Mean Corpuscular Hemoglobin Concent 31.4 g/dl (32-36) Platelet Count 197 K/uL (130-400) Mean Platelet Volume 9.9 fL (7.4-10.4) Neutrophils (%) (Auto) 57.2 % Lymphocytes (%) (Auto) 29.6 % Monocytes (%) (Auto) 10.3 % Eosinophils (%) (Auto) 2.0 % Basophils (%) (Auto) 0.3 % Neutrophils # (Auto) 3.64 K/uL (1.4-6.5) Lymphocytes # (Auto) 1.89 K/uL (1.2-3.4) Monocytes # (Auto) 0.66 K/uL (0.11-0.59) Eosinophils # (Auto) 0.13 K/uL (0-0.5) Basophils # (Auto) 0.02 K/uL (0-0.2) RDW Standard Deviation 45.1 fL (36.4-46.3) RDW Coefficient of Variation 13.1 % (11.5-14.5) Immature Granulocyte % (Auto) 0.6 % Immature Granulocyte # (Auto) 0.04 K/uL (0.00-0.02) Anion Gap 4.0 mmol/L (3-11) Est Creatinine Clear Calc Drug Dose 189.3 ml/min Estimated GFR () 142.5 Estimated GFR (Non- 122.9 BUN/Creatinine Ratio 14.3 (10-20) Calcium Level 8.1 mg/dl (8.5-10.1) Total Bilirubin 0.4 mg/dl (0.2-1) Aspartate Amino Transf (AST/SGOT) 75 U/L (15-37) Alanine Aminotransferase (ALT/SGPT) 168 U/L (12-78) Alkaline Phosphatase 223 U/L (45-117) Total Protein 5.8 gm/dl (6.4-8.2) Albumin 2.8 gm/dl (3.4-5.0) Globulin 3.0 gm/dl (2.5-4.0) Albumin/Globulin Ratio 0.9 (0.9-2) Medical Emergencies . Who to Call and When: Medical Emergencies: If at any time you feel your situation is an emergency, please call 911 immediately. . Non-Emergent Contact Non-Emergency issues call your: Primary Care Provider . . "Provider Documentation" section prepared by Oz Lancaster. . VTE Core Measure Inpt VTE Proph given/why not?: SCD's
--- NOTE | 2017-08-30 16:14 | Progress Note ---
Internal Med Progress Note Date of Service: Aug 30, 2017. Provider Documentation: SUBJECTIVE: Patient seen after EUS. Patient denies new complaints ASSESSMENT & PLAN: Hospital Course 08/29/17 Abdominal Ultrasound The imaged pancreas is unremarkable with the majority obscured by bowel gas. Mildly heterogeneous appearance of the liver is slightly echogenic suggesting fatty infiltration. No intrahepatic biliary ductal dilation. Liver measures up to 18.2 cm. Common bile duct is normal, 4 mm. Surgically absent gallbladder. Probable small right pleural effusion incidentally noted. The imaged right kidney is within normal limits measuring up to 10.8 cm in length. No right-sided hydronephrosis. IMPRESSION: 1. Prior cholecystectomy. 2. No biliary ductal dilation. 3. Mild fatty infiltration of the liver. 08/30/17 EUS "Endosonographic Finding : There was no sign of significant endosonographic abnormality in the ampulla. No masses were identified. There was no sign of significant endosonographic abnormality in the common bile duct. No stones and no biliary sludge were identified. The CBD was 4 mm. One hyperechoic clip or stone was visualized endosonographically in the cystic duct. The stone measured 2 mm in greatest dimension. It was hyperechoic. There was abnormal echogenicity in the entire examined liver. This area was hyperechoic. There was no sign of significant endosonographic abnormality in the entire pancreas. No masses, no cysts, the pancreatic duct was thin in caliber. The PD was 2.2 mm in the head and 1.3 mm in the body. No lymph nodes were seen during endosonographic examination in the celiac region (level 20), in the perigastric region and in the peripancreatic region. One benign-appearing lymph node was visualized in the yonis hepatis region. It measured 13 mm by 10 mm in maximal cross- sectional diameter. The node was triangular, hypoechoic and had well defined margins. There was no sign of significant endosonographic abnormality in the left adrenal gland. No adrenal gland enlargement was identified. Impression: - Normal ampulla. - 4 mm common bile duct. - One clip or stone was visualized endosonographically in the cystic duct (not reachable with ERCP). - Fatty infiltration of the liver. - Normal pancreas. - One benign lymph node was visualized in the yonis hepatis region. - Normal left adrenal" Gastroenterology 08/30/17: Patient's presentation most compatible with passed gallstone. 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) DISPOSITION Discharge Home with upcoming follow ups 09/02/2017 10:40 AM Jacklyn George, [facility] 09/03/2017 9:30 AM Javon De Leon MD Thoracic Med [facility] 09/04/2017 8:30 PM Sleep Study [facility], [facility] 09/06/2017 10:30 AM Randi Tong PA-C Otolaryngology [facility] 09/26/2017 11:00 AM Pacer Clinic [facility], [facility] Patient asked to return to the Emergency room if experiences severe abdominal or flank pain, high fevers, frequent diarrhea, vomiting, loss of consciousness Patient advised to limit fatty meals and foods with high amounts of simple sugars and cut down alcohol use to prevent further fatty infiltration of the liver. Encourage to stop tobacco products. Encourage to exercise as tolerated Vital Signs: Date Time Temp Pulse Resp B/P (MAP) Pulse Ox O2 Delivery O2 Flow Rate FiO2 08/30/17 15:25 67 18 08/30/17 15:25 69 18 91 08/30/17 15:20 65 17 96 08/30/17 15:20 64 17 08/30/17 15:16 108/57 08/30/17 15:15 77 20 94 08/30/17 15:15 75 20 08/30/17 15:12 161/132 08/30/17 15:10 68 15 100 08/30/17 15:10 68 15 08/30/17 15:09 36.8 08/30/17 15:06 90 16 08/30/17 15:06 90 16 125/69 99 08/30/17 15:01 81 24 08/30/17 15:01 81 24 113/75 98 08/30/17 15:00 Room Air 08/30/17 14:56 62 17 08/30/17 14:56 61 17 119/63 98 08/30/17 14:51 90 11 123/73 98 08/30/17 14:51 89 11 08/30/17 14:49 114/67 08/30/17 14:36 36.6 72 16 129/58 99 Oxymask 7 08/30/17 08:00 Room Air 08/30/17 07:47 36.6 76 18 117/75 (89) 92 08/30/17 00:40 Room Air 08/30/17 00:00 36.7 96 20 108/66 (80) 94 Room Air 08/29/17 20:04 98 156/85 (108) Lab Results: Results Past 24 Hours Test 08/30/17 06:23 Range/Units White Blood Count 6.38 4.8-10.8 K/uL Red Blood Count 3.38 4.2-5.4 M/uL Hemoglobin 10.0 12.0-16.0 g/dL Hematocrit 31.8 37-47 % Mean Corpuscular Volume 94.1 80-100 fL Mean Corpuscular Hemoglobin 29.6 25-34 pg Mean Corpuscular Hemoglobin Concent 31.4 32-36 g/dl Platelet Count 197 130-400 K/uL Mean Platelet Volume 9.9 7.4-10.4 fL Neutrophils (%) (Auto) 57.2 % Lymphocytes (%) (Auto) 29.6 % Monocytes (%) (Auto) 10.3 % Eosinophils (%) (Auto) 2.0 % Basophils (%) (Auto) 0.3 % Neutrophils # (Auto) 3.64 1.4-6.5 K/uL Lymphocytes # (Auto) 1.89 1.2-3.4 K/uL Monocytes # (Auto) 0.66 0.11-0.59 K/uL Eosinophils # (Auto) 0.13 0-0.5 K/uL Basophils # (Auto) 0.02 0-0.2 K/uL RDW Standard Deviation 45.1 36.4-46.3 fL RDW Coefficient of Variation 13.1 11.5-14.5 % Immature Granulocyte % (Auto) 0.6 % Immature Granulocyte # (Auto) 0.04 0.00-0.02 K/uL Sodium Level 139 136-145 mmol/L Potassium Level 4.1 3.5-5.1 mmol/L Chloride Level 106 98-107 mmol/L Carbon Dioxide Level 29 21-32 mmol/L Anion Gap 4.0 3-11 mmol/L Blood Urea Nitrogen 7 7-18 mg/dl Creatinine 0.52 0.60-1.20 mg/dl Est Creatinine Clear Calc Drug Dose 189.3 ml/min Estimated GFR () 142.5 Estimated GFR (Non- 122.9 BUN/Creatinine Ratio 14.3 10-20 Random Glucose 103 70-99 mg/dl Calcium Level 8.1 8.5-10.1 mg/dl Total Bilirubin 0.4 0.2-1 mg/dl Aspartate Amino Transf (AST/SGOT) 75 15-37 U/L Alanine Aminotransferase (ALT/SGPT) 168 12-78 U/L Alkaline Phosphatase 223 45-117 U/L Total Protein 5.8 6.4-8.2 gm/dl Albumin 2.8 3.4-5.0 gm/dl Globulin 3.0 2.5-4.0 gm/dl Albumin/Globulin Ratio 0.9 0.9-2
--- NOTE | 2017-08-30 16:34 | Discharge Summary ---
Discharge Summary Date of Service Aug 30, 2017. Discharge Summary Admission Date: Aug 28, 2017 at 16:06 Discharge Date: Aug 30, 2017 Principal Diagnosis: Right sided abdominal and flank pain, Transaminitis, possible passed gallstone, Fatty Liver Procedures: EUS Consultations: Gastroenterology Medication Reconciliation New Medications: Ibuprofen (Motrin) 400 Mg Tab 400 MG PO Q6H PRN for Pain for 5 Days, #20 TAB Continued Medications: Acetylcysteine (Nutrient) (Nac 600) 600 Mg Cap Albuterol (Ventolin Hfa) Aers 2 PUFFS INH Q4HR PRN for wheezing Albuterol Sulf (Proventil 0.083% 2.5MG/3ML) 2.5 Mg/3 Ml Nebu 2.5 MG INH QID, EA Amlodipine (Norvasc) 10 Mg Tab 2.5 MG PO QAM, #30 2 Refills Ascorbic Acid (Lina-C) 1 Cry Cry Carbamazepine (Tegretol Xr) 200 Mg Cap 200 MG PO DAILY for 30 Days, #30 CAP Carbamazepine (Tegretol) 100 Mg Chew 300 MG PO QPM for 30 Days, #90 TAB Dexlansoprazole (Dexilant) 60 Mg Cap 60 MG PO Q am PRN for reflux Diazepam (Valium) 5 Mg Tab 1 TAB PO TID PRN for Anxiety/Agitation for 30 Days, #90 TAB Fluoxetine (Prozac) 40 Mg Cap 80 MG PO QD for 30 Days, #60 CAP Fluticasone Furoate-Vilanterol (Breo Ellipta) 1 Inh Inh Furosemide (Lasix) 40 Mg Tab 40 MG PO, TAB Take with 20mg lasix for a total of 60mg lasix total. Furosemide (Lasix) 20 Mg Tab 20 MG PO, TAB Take with 40mg lasix for a total of 60mg lasix total. Magnesium Oxide (Mag-Ox) 400 Mg Tab 400 MG PO, TAB Metoprolol Tartrate (Lopressor) (Lopressor) 50 Mg Tab 50 MG PO BID, 0 Refills Milnacipran Hcl (Savella) 50 Mg Tab 1 TAB PO BID for 30 Days, #60 TAB 2 Refills Mometasone Furoate (Inhalation (Asmanex Twisthaler 120 Me) 220 Mcg/Inh Aer Olanzapine (Zyprexa) 15 Mg Tab 15 MG PO DAILY, TAB Prazosin Hcl (Prazosin) 1 Mg Cap 1 MG PO BID, CAP Ranitidine Hcl (Zantac) 150 Mg Tab 150 MG PO BID, TAB Sucralfate (Sucralfate) 1 Gm Tab 1 GM PO before meals for errosive gastritis and reflux Tizanidine (Zanaflex) 4 Mg Cap 4 MG PO DAILY, CAP Admission Information HPI (per Admitting provider): This is a 37yo F with a PMH of POTS (s/p pacemaker), COPD, fibromyalgia, bipolar disorder, vasospastic angina and anxiety who presents with R flank/back pain that started at 3am today. Describes pain as 10/10 stabbing R back pain with radiation to the flank. Associated with nausea but no vomiting or diarrhea. Patient took hydrocodone but it did not relieve pain so she presented to [facility]. Was found to have a leukocytosis of 12.6, an elevated lipase of 646 and transaminitis. Patient had a cholecystectomy in 2010. CT abd pelvis was without an acute inflammatory process. No nephrolithiasis, hydronephrosis, ureteral stone. Normal appendix. RUQ ultrasound showed a CBD of 0.5cm; no stone obstruction. GI was consulted at [facility] but patient unable to have an MRCP due to presence of pacemaker. Was transferred to [facility] for pain control and ERCP. Patient denies recent alcohol use. Denies prior history of pancreatitis. Does take Lasix daily for HTN. Denies h/o CHF. Physical Exam (per Admitting): General Appearance: + moderate distress, + obese Head: normocephalic, atraumatic Eyes: normal inspection, PERRL, sclerae normal ENT: normal ENT inspection, hearing grossly normal, pharynx normal (dry mucous membranes ) Neck: supple, thyroid normal, trachea midline Respiratory/Chest: chest non-tender, lungs clear, normal breath sounds, no respiratory distress, no accessory muscle use, + wheezing (Diffuse bilateral expiratory wheezing. Otherwise clear. ) Cardiovascular: regular rate, rhythm, no murmur, normal peripheral pulses Abdomen/GI: normal bowel sounds, non tender, soft, no organomegaly Back: + pertinent finding (TTP of R lower back to flank ) Extremities/Musculoskelatal: normal inspection, normal capillary refill, no pedal edema Neurologic/Psych: no motor/sensory deficits, alert, normal mood/affect, oriented x 3 Skin: normal color, + pertinent finding (Diffuse excoriations 2/2 skin picking ) Hospital Course Hospital Course 08/29/17 Abdominal Ultrasound The imaged pancreas is unremarkable with the majority obscured by bowel gas. Mildly heterogeneous appearance of the liver is slightly echogenic suggesting fatty infiltration. No intrahepatic biliary ductal dilation. Liver measures up to 18.2 cm. Common bile duct is normal, 4 mm. Surgically absent gallbladder. Probable small right pleural effusion incidentally noted. The imaged right kidney is within normal limits measuring up to 10.8 cm in length. No right-sided hydronephrosis. IMPRESSION: 1. Prior cholecystectomy. 2. No biliary ductal dilation. 3. Mild fatty infiltration of the liver. 08/30/17 EUS "Endosonographic Finding : There was no sign of significant endosonographic abnormality in the ampulla. No masses were identified. There was no sign of significant endosonographic abnormality in the common bile duct. No stones and no biliary sludge were identified. The CBD was 4 mm. One hyperechoic clip or stone was visualized endosonographically in the cystic duct. The stone measured 2 mm in greatest dimension. It was hyperechoic. There was abnormal echogenicity in the entire examined liver. This area was hyperechoic. There was no sign of significant endosonographic abnormality in the entire pancreas. No masses, no cysts, the pancreatic duct was thin in caliber. The PD was 2.2 mm in the head and 1.3 mm in the body. No lymph nodes were seen during endosonographic examination in the celiac region (level 20), in the perigastric region and in the peripancreatic region. One benign-appearing lymph node was visualized in the yonis hepatis region. It measured 13 mm by 10 mm in maximal cross- sectional diameter. The node was triangular, hypoechoic and had well defined margins. There was no sign of significant endosonographic abnormality in the left adrenal gland. No adrenal gland enlargement was identified. Impression: - Normal ampulla. - 4 mm common bile duct. - One clip or stone was visualized endosonographically in the cystic duct (not reachable with ERCP). - Fatty infiltration of the liver. - Normal pancreas. - One benign lymph node was visualized in the yonis hepatis region. - Normal left adrenal" Gastroenterology 08/30/17: Patient's presentation most compatible with passed gallstone. 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) DISPOSITION Discharge Home with upcoming follow ups 09/02/2017 10:40 AM Jacklyn George DO [facility] [place] 09/03/2017 9:30 AM Javon De Leon MD Thoracic Med [facility] 09/04/2017 8:30 PM Sleep Study [facility], [facility] 09/06/2017 10:30 AM Randi Tong PA-C Otolaryngology [facility] 09/26/2017 11:00 AM Pacer Clinic [facility] Cardiology, [facility] Patient asked to return to the Emergency room if experiences severe abdominal or flank pain, high fevers, frequent diarrhea, vomiting, loss of consciousness Patient advised to limit fatty meals and foods with high amounts of simple sugars and cut down alcohol use to prevent further fatty infiltration of the liver. Encourage to stop tobacco products. Encourage to exercise as tolerated Total time spent on discharge = 60 minutes This includes examination of the patient, discharge planning, medication reconciliation, and communication with other providers. Discharge Instructions see above
[2017-08-30] MEDS ORDERED: CARBAMAZEPINE 200 MG TAB PO SCH (21:00)
[2017-08-31 18:40] LABS: CMV DNA PCR QUAL NOT DETECTED; EPSTEIN BARR VIR CAPSID IGG >750.00 U/ML
== END 2017-08-30 18:37 | disposition home or self-care (01) ==
LOC: C.4E 16:06
PROVIDERS: ADMIT Family Medicine; ATTEND Hospitalist
DX: K76.0 Fatty (change of) liver, not elsewhere classified (principal); I47.1 Supraventricular tachycardia; G98.8 Other disorders of nervous system; R55 Syncope and collapse; Z95.0 Presence of cardiac pacemaker; J44.9 Chronic obstructive pulmonary disease, unspecified; M79.7 Fibromyalgia; K21.9 Gastro-esophageal reflux disease without esophagitis; F31.2 Bipolar disorder, current episode manic severe with psychotic features; F41.9 Anxiety disorder, unspecified; Z87.891 Personal history of nicotine dependence; Z79.899 Other long term (current) drug therapy; I20.9 Angina pectoris, unspecified; I10 Essential (primary) hypertension